=== PATIENT | male | born 2000 | race Caucasian/White ===

== ENCOUNTER 2020-03-27 20:14 | Emergency (ER) | payer OTHER ==
[2020-03-27 20:46] VITALS: BP 143/87
--- NOTE | 2020-03-27 21:59 | ER Document Report ---
HPI - HPI Time Seen by Provider: 03/27/20 21:52 Notes: 20-year-old male presents emergency room for evaluation of a laceration to her aspect of his left fifth finger after he was cutting a tomato and accidentally cut a piece of his finger. His tetanus is up-to-date. Denies any numbness or tingling to affected area. Bleeding is controlled. Denies any other area of injury. States pain is 1 out of 10, throbbing achy. No [id number] medications have been tried. Denies fevers, chills, chest pain,palpitations, shortness of breath, dyspnea, nausea, vomiting, diarrhea, abdominal pain, hematuria,blurred vision, double vision, loss of vision, speech changes, LH, dizziness, syncope, headaches, wheezing, ST, URI, neck pain, weakness, bowel or bladder dysfunction, saddle anesthesia, numbness or tingling in bilateral upper or lower extremities equally, muscle paralysis, weakness in bilateral upper or lower extremities equally or rash. Denies IV drug use. MEDICATIONS: I agree with the patient medications as charted by the RN. ALLERGIES: I agree with the allergies as charted by the RN. PAST MEDICAL HISTORY/PAST SURGICAL HISTORY: Reviewed and agree as charted by RN. SOCIAL HISTORY: Reviewed and agree as charted by RN. FAMILY HISTORY: No significant familial comorbid conditions directly related to patient complaint EXAM: Reviewed vital signs as charted by RN. REVIEW OF SYSTEMS:reviewed vital signs by RN CONSTITUTIONAL : Denies fever, chills, or sweats. Denies recent illness. EENT: Denies eye, ear, throat, or mouth pain or symptoms. Denies nasal or sinus congestion or discharge. Denies throat, tongue, or mouth swelling or difficulty swallowing. CARDIOVASCULAR: Denies chest pain. Denies palpitations or racing or irregular heart beat. Denies ankle edema. RESPIRATORY: Denies cough, cold, or chest congestion. Denies shortness of breath, difficulty breathing, or wheezing. GASTROINTESTINAL: Denies abdominal pain or distention. Denies nausea, vomiting, or diarrhea. Denies blood in vomitus, stools, or per rectum. Denies black, tarry stools. Denies constipation. GENITOURINARY: Denies difficulty urinating, painful urination, burning, frequency, blood in urine, or discharge. MUSCULOSKELETAL: Denies back or neck pain or stiffness. Denies joint pain or swelling. SKIN: Laceration to left fifth finger. denies rash, lesions or sores. HEMATOLOGIC : Denies easy bruising or bleeding. LYMPHATIC: Denies swollen, enlarged glands. NEUROLOGICAL: Denies confusion or altered mental status. Denies passing out or loss of consciousness. Denies dizziness or lightheadedness. Denies headache. Denies weakness or paralysis or loss of use of either side. Denies problems with gait or speech. Denies sensory loss, numbness, or tingling. Denies seizures. PSYCHIATRIC: Denies anxiety or stress. Denies depression, suicidal ideation, or homicidal ideation. ALL OTHER SYSTEMS REVIEWED AND NEGATIVE. Dictation was performed using [employer] voice recognition software PHYSICAL EXAMINATION: GENERAL: Well-appearing, well-nourished and in no acute distress. HEAD: Atraumatic, normocephalic. EYES: Pupils equal round and reactive to light, extraocular movements intact, sclera anicteric, conjunctiva are normal. ENT: Nares patent, oropharynx clear without exudates. Moist mucous membranes. NECK: Normal range of motion, supple without lymphadenopathy LUNGS: Breath sounds clear to auscultation bilaterally and equal. No wheezes rales or rhonchi. HEART: Regular rate and rhythm without murmurs ABDOMEN: Soft, nontender, nondistended abdomen. No guarding, no rebound. No masses appreciated. Musculoskeletal: Normal range of motion, no pitting or edema. No cyanosis. NEUROLOGICAL: Cranial nerves grossly intact. Normal speech, normal gait. Normal sensory, motor exams PSYCH: Normal mood, normal affect. SKIN: Warm, Dry, normal turgor, no rashes or lesions noted. Avulsion to left fifth finger at distal, lateral aspect aspects, approximately 0.5 cm deep approximately 1 cm wide. Pain to 5th left phalange at distal tip on lateral aspect. no pain to wrist with flexion, extension, inversion, eversion of wrist. digits in right and left with full aprom. Forming Machine Tender + 2 BUE equally. Snuffbox tenderness negative on bilaterally. radial pulses + 2 BUE equally. Negative kanavels sign. No open wounds or drainage from wrist. No vascular compromise.No body crepitus or focal area of TTP. no pain with opposition, flexion, extension, abduction and adduction on left. Motor and sensory function of ulnar, radial, medial nerves intact bilaterally and equally. strength 5/5 in BUE equally. MEDICATIONS: I agree with the patient medications as charted by the RN. ALLERGIES: I agree with the allergies as charted by the RN. PAST MEDICAL HISTORY/PAST SURGICAL HISTORY: Reviewed and agree as charted by RN. SOCIAL HISTORY: Reviewed and agree as charted by RN. FAMILY HISTORY: No significant familial comorbid conditions directly related to patient complaint EXAM: Reviewed vital signs as charted by RN. Past Medical History - Social History Smoking Status: Unknown if Ever Smoked Family History: Reviewed & Not Pertinent Vertical Provider Document - CONSTITUTIONAL Agree With Documented VS: Yes Exam Limitations: No Limitations General Appearance: WD/WN Course - Re-evaluation Re-evalutation: 03/27/20 22:00 Afebrile vital stable no distress. Nurses notes reviewed. Due to avulsion of skin at distal aspect of fifth finger with 0.5 cm depth, no risk for fracture of phalanges, 100 mL's of normal saline applied, compressive dressing placed. Discussed with patient to apply triple antibiotic ointment a day monitor for any signs and symptoms of infection such as redness, swelling, drainage. Follow-up with primary care provider in the next 24 to 48 hours. Unable to suture anything, no Steri-Strips applied. follow-up with aircraft electrical systems specialist as needed. After performing a Medical Screening Examination, I estimate there is LOW risk for OPEN FRACTURE, COMPARTMENT SYNDROME, TENDON RUPTURE, ACUTE NEUROVASCULAR INJURY, or RETAINED FOREIGN BODY, thus I consider the discharge disposition reasonable. Also, there is no evidence or peritonitis, sepsis, or toxicity. I have reevaluated this patient multiple times and no significant life threatening changes are noted. The patient and I have discussed the diagnosis and risks, and we agree with discharging home with close follow-up with the understanding that symptoms and presentations can change. We also discussed returning to the Emergency Department immediately if new or worsening symptoms occur. We have discussed the symptoms which are most concerning (e.g., changing or worsening pain, fever, numbness, weakness, cool or painful digits) that necessitate immediate return. 03/27/20 22:01 - Vital Signs Vital signs: Temp Pulse Resp BP Pulse Ox 99.5 F 68 16 143/87 H 98 03/27/20 20:44 03/27/20 20:44 03/27/20 20:44 03/27/20 20:44 03/27/20 20:44 Discharge - Discharge Clinical Impression: Avulsion of skin of finger Condition: Stable Disposition: HOME, SELF-CARE Instructions: Laceration [facility] ([facility]) Additional Instructions: You have an avulsion of your left pinky finger, monitor for any signs of infection such as redness, swelling, drainage. Apply triple antibiotic ointment to the area twice a day. Your tetanus is up-to-date. Follow-up with primary care provider as needed. Return immediately for any new or worsening symptoms. Follow up with primary care provider, call tomorrow to make followup appointment. Referrals: GERARD MURRIETA MD [ACTIVE STAFF] - Follow up as needed MELBA MURRAY MD [ACTIVE PROVISIONAL STAFF] - Follow up as needed
== END 2020-03-27 22:30 | disposition home or self-care (01) ==
LOC: ER 20:14
DX: S61.217A Laceration without foreign body of left little finger without damage to nail, initial encounter (principal); W26.8XXA Contact with other sharp object(s), not elsewhere classified, initial encounter; Y93.G9 Activity, other involving cooking and grilling
CPT/HCPCS: 99282